=== PATIENT | female | born 1995 | race Two or more races ===

== ENCOUNTER 2018-10-25 13:50 | Observation (INO) | payer SELFPAY | END 2018-10-25 16:30 | disposition home or self-care (01) | DRG 833 | LOC: LDRP 13:50 | PROVIDERS: ADMIT Specialist; ATTEND Specialist | DX: O36.8130 Decreased fetal movements, third trimester, not applicable or unspecified (principal); Z3A.39 39 weeks gestation of pregnancy | CPT/HCPCS: 59025; 76818; 81002; G0378 ==